=== PATIENT | female | born 1985 | race Caucasian/White ===

== ENCOUNTER 2016-06-05 08:24 | Emergency (ER) | payer BC ==
[~2016-06-05] VITALS: Ht 170.2 cm; Wt 80.5 kg
[2016-06-05 08:27] VITALS: Ht 170.2 cm; Wt 80.5 kg
[2016-06-05 09:27] LABS: BASOPHILS % 0.3 % (0.0-2.0); EOSINOPHILS # 0.1 10^3/ul (0.0-0.5); EOSINOPHILS % 0.5 % (0.0-7.0); HEMATOCRIT 36.2 % (37.0-47.0); HEMOGLOBIN 12.6 g/dl (12.0-16.0); LYMPHOCYTES # 1.2 10^3/ul (0.8-2.9); LYMPHOCYTES % 10.5 % (15.0-51.0); MEAN CORPUSCULAR HEMOGLOBIN 29.9 pg (29.0-33.0); MEAN CORPUSCULAR HGB CONC 34.8 g/dl (32.0-37.0); MEAN CORPUSCULAR VOLUME 85.8 fl (82.0-101.0); MEAN PLATELET VOLUME 9.8 fl (7.4-10.4); MONOCYTE # 0.6 10^3/ul (0.3-0.9); MONOCYTES % 5.1 % (0.0-11.0); NEUTROPHIL # 9.3 10^3/ul (1.6-7.5); NEUTROPHILS % 83.3 % (39.0-77.0); PLATELET COUNT 255 10^3/UL (140-440); RED BLOOD COUNT 4.22 10^6/ul (4.20-5.40); WHITE BLOOD COUNT 11.1 10^3/ul (4.8-10.8)
[2016-06-05 09:33] LABS: ALBUMIN 4.4 g/dl (3.3-4.9)
[2016-06-05 09:34] LABS: POTASSIUM 4.3 mmol/L (3.5-5.1)
[2016-06-05 09:36] LABS: CREATININE 0.57 mg/dl (0.44-1.00)
[2016-06-05 09:37] LABS: ALBUMIN/GLOBULIN RATIO 1.62; BILIRUBIN,INDIRECT 0.2 mg/dl (0-1.1); BILIRUBIN,TOTAL 0.2 mg/dl (0.2-1.3); CALCIUM 10.1 mg/dl (8.4-10.2); TOTAL PROTEIN 7.1 g/dl (6.1-8.1)
[2016-06-05 10:04] LABS: ADD UMIC NO; URINE BILIRUBIN (Dip) NEGATIVE (NEGATIVE); URINE BLOOD (Dip) NEGATIVE (NEGATIVE); URINE COLOR LT. YELLOW (YELLOW); URINE GLUCOSE (Dip) NEGATIVE (NEGATIVE); URINE KETONES (Dip) NEGATIVE (NEGATIVE); URINE LEUKOCYTE ESTERASE (Dip) NEGATIVE (NEGATIVE); URINE NITRITE (Dip) NEGATIVE (NEGATIVE); URINE TOTAL PROTEIN (Dip) NEGATIVE (NEGATIVE); URINE UROBILINOGEN (Dip) 0.2 E.U./dL (0.1-1.0)
--- NOTE | 2016-06-05 10:27 | RADRPT ---
PROCEDURE: US Abdomen (right upper quadrant). CLINICAL INDICATION: Pain TECHNIQUE: Multiple real-time longitudinal and transverse images of the right upper quadrant of th e abdomen were acquired utilizing a curved array transducer. Images were reviewed on a high-resoluti on PACS workstation. COMPARISON: None FINDINGS: The liver is normal in size and echogenicity without focal mass. Normal hepatopedal flow is present within the main portal vein. The gallbladder contains multiple small gallstones. No gallbladder w all thickening or pericholecystic fluid is identified. No intra or extrahepatic biliary dilatation i s seen. The common bile duct measures 3.5 mm in maximal dimension. The visualized portions of the pancreas are unremarkable with obscuration of the tail of the pancreas. No free fluid is identified . The right kidney measures 8.1 cm in length. No renal mass, calculus, hydronephrosis or perinephric fluid collection is identified. Visualized portion of the abdominal aorta and IVC is unremarkable. IMPRESSION: 1. Cholelithiasis, without evidence for cholecystitis. 2. Otherwise unremarkable ultrasound exam. RPTAT: QQ .Dinesh May MD, MD Date Time Electronically viewed and signed by .Dinesh May MD, on 06/05/2016 10:27 .R/
[2016-06-05 13:39] VITALS: BP 123/68; PULSE 72; RESP 18
--- NOTE | 2016-06-05 13:52 | ERD ---
ER Documentation Chief Complaint Date/Time DATE: 06/05/16 TIME: 13:42 Chief Complaint Complains of right upper quadrant pain and vomiting since this am HPI 30-year-old female with with a past medical history of chronic fatigue syndrome , fibromyalgia presents the ED complaining of right upper quadrant abdominal pain that started earlier this morning. States that she had 3-4 episodes of nonbilious nonbloody vomiting. Describes it as a pressure-like pain and rates it a 8 out of 10. Patient was sent here by her primary care physician for further evaluation for her right upper quadrant pain. Denies any chest pain, shortness of breath, cough, fever, chills, diarrhea, rashes, dysuria, flank pain , urgency, frequency. ROS All systems reviewed and are negative except as per history of present illness. Allergies Allergies: Coded Allergies: Penicillins (Verified Allergy, Unknown, throat closes, 06/05/16) aspirin (Verified Allergy, Unknown, throat closes, 06/05/16) PMhx/Soc Medical and Surgical Hx: pt denies Medical Hx, pt denies Surgical Hx History of Surgery: No Anesthesia Reaction: No Hx Neurological Disorder: No Hx Respiratory Disorders: No Hx Cardiac Disorders: No Hx Psychiatric Problems: No Hx Miscellaneous Medical Probl: No Hx Alcohol Use: No Hx Substance Use: No Hx Tobacco Use: No Physical Exam Vitals Vital Signs Date Time Temp Pulse Resp B/P Pulse Ox O2 Delivery O2 Flow Rate FiO2 06/05/16 13:39 72 18 123/68 98 Room Air 06/05/16 08:27 98.0 70 20 113/91 100 Physical Exam Const: [id number], well-nourished. In no acute distress. Head: Atraumatic, normocephalic Eyes: Normal Conjunctiva without injection. No purulent discharge. ENT: Normal external ear, nose. Moist oropharynx without tonsillar exudates. Non -erythematous pharynx. Uvula midline. No drooling. No trismus. Neck: No cervical midline tenderness. Full range of motion. No meningismus. No cervical lymphadenopathy. No JVD. Resp: Clear to auscultation bilaterally. No wheezing, rhonchi, rales, or crackles. No accessory muscle use. No retractions. Cardio: Regular rate and rhythm. No murmurs, rubs or gallops. Abd: Soft, tenderness to palpation of the right upper quadrant, non distended. Normal bowel sounds. No palpable masses. No rebound tenderness. No guarding. Negative McBurney's point. Negative psoas sign. Negative obturator sign. Skin: No petechiae or rashes Back: No midline tenderness. No CVA tenderness. Ext: No cyanosis, or edema. Neur: Awake and alert. Normal gait. Normal coordination. Psych: Normal Mood and Affect Result Diagram: 06/05/1690906/05/16909 Results 24 hrs Laboratory Tests Test 06/05/16 09:10 Alanine Aminotransferase (ALT/SGPT) 43IU/L Albumin 4.4g/dl Albumin/Globulin Ratio 1.62 Alkaline Phosphatase 87IU/L Anion Gap 16 Aspartate Amino Transf (AST/SGOT) 49IU/L Basophils # 0.010^3/ul Basophils % 0.3% Blood Urea Nitrogen 11mg/dl Calcium Level 10.1mg/dl Carbon Dioxide Level 29mmol/L Chloride Level 99mmol/L Creatinine 0.57mg/dl Differential Comment 1 Direct Bilirubin 0.00mg/dl Eosinophils # 0.110^3/ul Eosinophils % 0.5% Globulin 2.70g/dl Glucose Level 106mg/dl Hematocrit 36.2% Hemoglobin 12.6g/dl Indirect Bilirubin 0.2mg/dl Lipase 94U/L Lymphocytes # 1.210^3/ul Lymphocytes % 10.5% Mean Corpuscular Hemoglobin 29.9pg Mean Corpuscular Hemoglobin Concent 34.8g/dl Mean Corpuscular Volume 85.8fl Mean Platelet Volume 9.8fl Monocytes # 0.610^3/ul Monocytes % 5.1% Neutrophils # 9.310^3/ul Neutrophils % 83.3% Nucleated Red Blood Cells # 0.010^3/ul Nucleated Red Blood Cells % 0.0/100WBC Platelet Count 89354^3/UL Potassium Level 4.3mmol/L Red Blood Count 4.2210^6/ul Red Cell Distribution Width 12.0% Sodium Level 140mmol/L Total Bilirubin 0.2mg/dl Total Protein 7.1g/dl Urine Bilirubin NEGATIVE Urine Clarity CLEAR Urine Color LT. YELLOW Urine Glucose NEGATIVE% Urine Hemoglobin NEGATIVE Urine Ketones NEGATIVE Urine Leukocyte Esterase NEGATIVE Urine Nitrite NEGATIVE Urine Specific [place] 1.020 Urine Total Protein NEGATIVE Urine Urobilinogen 0.2 E.U./dL Urine pH 8.0 White Blood Count 11.110^3/ul Procedures/MDM This is a 30-year-old female with a past medical history of chronic fatigue syndrome, fibromyalgia presents to the ED complaining of right upper quadrant pain associated with vomiting. Patient is afebrile and nontoxic-appearing. Patient has normal vital signs. Patient was further worked up with CBC, CMP, lipase, UA, urine , Patient's pain and symptoms have improved after treatment with CBC: Mild leukocytosis of 11.1. No e/o anemia. CMP: No e/o severe acidosis, alkalosis, renal failure, diabetic ketoacidosis, liver disease Lipase within normal limits. Urine: No leukocyte esterase, no nitrites, no hematuria. Urine : negative PROCEDURE: US Abdomen (right upper quadrant). CLINICAL INDICATION: Pain TECHNIQUE: Multiple real-time longitudinal and transverse images of the right upper quadrant of the abdomen were acquired utilizing a curved array transducer. Images were reviewed on a high-resolution PACS workstation. COMPARISON: None FINDINGS: The liver is normal in size and echogenicity without focal mass. Normal hepatopedal flow is present within the main portal vein. The gallbladder contains multiple small gallstones. No gallbladder wall thickening or pericholecystic fluid is identified. No intra or extrahepatic biliary dilatation is seen. The common bile duct measures 3.5 mm in maximal dimension. The visualized portions of the pancreas are unremarkable with obscuration of the tail of the pancreas. No free fluid is identified. The right kidney measures 8.1 cm in length. No renal mass, calculus, hydronephrosis or perinephric fluid collection is identified. Visualized portion of the abdominal aorta and IVC is unremarkable. IMPRESSION: 1. Cholelithiasis, without evidence for cholecystitis. 2. Otherwise unremarkable ultrasound exam. Patient symptoms could likely be due to biliary colic without evidence of cholecystitis, choledocholithiasis, cholangitis, gallstone P keratitis, pancreatitis, or other emergent conditions. A differential diagnosis considered includes but is not limited to gastritis, GERD, peptic ulcer disease , cholecystitis, choledocholithiasis, cholangitis, pancreatitis, appendicitis, bowel obstruction, ileus, volvulus, nephrolithiasis, pyelonephritis, hepatitis, perforated viscus, diverticulitis, abdominal hernia, acute abdomen, mesenteric ischemia or other emergent conditions. Patient denied wanting any prescriptions for pain medicines at this time. Reports that she is ready taking tramadol for pain. 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 Instructed patient to return to the ED sooner for any worsening symptoms. Patient's questions were answered. Patient understood and agreed with discharge plan. Patient discharged stable. Departure Diagnosis: Primary Impression: Cholelithiasis Cholelithiasis location: other site Biliary obstruction: without biliary obstruction Qualified Code: K80.80 - Biliary calculus of other site without obstruction Condition: Stable Patient Instructions: Biliary Colic With Gallstone (Confirmed) Referrals: [facility] YOU HAVE RECEIVED A MEDICAL SCREENING EXAM AND THE RESULTS INDICATE THAT YOU DO NOT HAVE A CONDITION THAT REQUIRES URGENT TREATMENT IN THE EMERGENCY DEPARTMENT. FURTHER EVALUATION AND TREATMENT OF YOUR CONDITION CAN WAIT UNTIL YOU ARE SEEN IN YOUR DOCTORS OFFICE WITHIN THE NEXT 1-2 DAYS. IT IS YOUR RESPONSIBILITY TO MAKE AN APPOINTMENT FOR FOLOW-UP CARE. IF YOU HAVE A PRIMARY DOCTOR --you should call your primary doctor and schedule an appointment IF YOU DO NOT HAVE A PRIMARY DOCTOR YOU CAN CALL OUR PHYSICIAN REFERRAL HOTLINE AT IF YOU CAN NOT AFFORD TO SEE A PHYSICIAN YOU CAN CHOSE FROM THE FOLLOWING [facility] [address] [facility]. [facility] [address] [facility]. [facility] [address] [facility] [facility] [address]. [facility] [address] [facility]. [facility]. [address] [facility]. [facility] YOU HAVE RECEIVED A MEDICAL SCREENING EXAM AND THE RESULTS INDICATE THAT YOU DO NOT HAVE A CONDITION THAT REQUIRES URGENT TREATMENT IN THE EMERGENCY DEPARTMENT. FURTHER EVALUATION AND TREATMENT OF YOUR CONDITION CAN WAIT UNTIL YOU ARE SEEN IN YOUR DOCTORS OFFICE WITHIN THE NEXT 1-2 DAYS. IT IS YOUR RESPONSIBILITY TO MAKE AN APPOINTMENT FOR FOLOW-UP CARE. IF YOU HAVE A PRIMARY DOCTOR --you should call your primary doctor and schedule and appointment IF YOU DO NOT HAVE A PRIMARY DOCTOR YOU CAN CALL OUR PHYSICIAN REFERRAL HOTLINE AT . IF YOU CAN NOT AFFORD TO SEE A PHYSICIAN YOU CAN CHOSE FROM THE FOLLOWING [facility] INSTITUTIONS: [facility] [address] [place] [address] [facility] [address] [place] [address] [facility] + [facility] [address] [place] [address] [facility] URGENT CARE/SPECIALTIES Additional Instructions: FOLLOW UP WITH YOUR PRIMARY CARE PHYSICIAN TOMORROW.Return to this facility if you are not improving as expected. MONIKA LEDESMA PA-C Jun 05, 2016 13:52
== END 2016-06-05 13:40 | disposition home or self-care (01) ==
LOC: FTE 08:24
DX: K80.80 Other cholelithiasis without obstruction (principal)
CPT/HCPCS: 36415; 76705; 80053; 81003; 83690; 85025